=== PATIENT | female | born 1945 | race Caucasian/White ===

== ENCOUNTER 2020-07-16 16:04 | Outpatient (CLI) | payer MEDICARE | END 2020-07-16 16:05 | disposition home or self-care (01) | LOC: CSHWCC 16:04 | PROVIDERS: ATTEND Nurse Practitioner Family | DX: L97.422 Non-pressure chronic ulcer of left heel and midfoot with fat layer exposed (principal); S81.801A Unspecified open wound, right lower leg, initial encounter; I10 Essential (primary) hypertension; I70.25 Atherosclerosis of native arteries of other extremities with ulceration; J44.9 Chronic obstructive pulmonary disease, unspecified; J45.909 Unspecified asthma, uncomplicated; L97.521 Non-pressure chronic ulcer of other part of left foot limited to breakdown of skin; L97.522 Non-pressure chronic ulcer of other part of left foot with fat layer exposed; W22.8XXA Striking against or struck by other objects, initial encounter | CPT/HCPCS: 11042; 99212; G0463 ==

== ENCOUNTER 2020-07-26 11:24 | Outpatient (CLI) | payer MEDICARE | END 2020-07-26 11:25 | disposition home or self-care (01) | LOC: CSHWCC 11:24 | PROVIDERS: ATTEND Nurse Practitioner Family | DX: L97.422 Non-pressure chronic ulcer of left heel and midfoot with fat layer exposed (principal); L97.521 Non-pressure chronic ulcer of other part of left foot limited to breakdown of skin; L97.522 Non-pressure chronic ulcer of other part of left foot with fat layer exposed; S81.801D Unspecified open wound, right lower leg, subsequent encounter; I70.25 Atherosclerosis of native arteries of other extremities with ulceration; J44.9 Chronic obstructive pulmonary disease, unspecified; I10 Essential (primary) hypertension; W22.8XXD Striking against or struck by other objects, subsequent encounter ==

== ENCOUNTER 2020-10-21 09:10 | Outpatient (CLI) | payer MEDICARE | END 2020-10-21 09:11 | disposition home or self-care (01) | LOC: CSHWCC 09:10 | PROVIDERS: ATTEND Nurse Practitioner Family | DX: S81.801D Unspecified open wound, right lower leg, subsequent encounter (principal); I10 Essential (primary) hypertension; I70.25 Atherosclerosis of native arteries of other extremities with ulceration; J44.9 Chronic obstructive pulmonary disease, unspecified; W22.8XXS Striking against or struck by other objects, sequela | CPT/HCPCS: 11042; 99212; G0463 ==

== ENCOUNTER 2020-11-12 10:36 | Outpatient (CLI) | payer MEDICARE | END 2020-11-12 10:37 | disposition home or self-care (01) | LOC: CSHWCC 10:36 | PROVIDERS: ATTEND Nurse Practitioner Family | DX: S81.801D Unspecified open wound, right lower leg, subsequent encounter (principal); I70.25 Atherosclerosis of native arteries of other extremities with ulceration; J44.9 Chronic obstructive pulmonary disease, unspecified; I10 Essential (primary) hypertension; W22.8XXD Striking against or struck by other objects, subsequent encounter | CPT/HCPCS: 99212; G0463 ==

== ENCOUNTER 2021-10-28 14:07 | Outpatient (CLI) | payer MEDICARE ==
[2021-10-28 15:35] LABS: Hemoglobin 12.5 g/dL (12.0-15.5); Mean Corpuscular HGB CONC 33.7 g/dL (32.0-36.0); Mean Corpuscular Hemoglobin 31.6 pg (27.0-33.0); Mean Corpuscular Volume 93.9 fl (81.6-98.3); Platelet Count 258 10x3/uL (150-450); RBC Distribution Width 13.4 % (11.5-14.5); Red Blood Cell (RBC) Count 3.95 10x6/uL (3.90-5.03); White Blood Cell (WBC) Count 12.9 10x3/uL (3.5-10.5)
[2021-10-28 16:00] LABS: Anion Gap 15 mmol/L (10-20); BUN (Urea Nitrogen) 22 mg/dL (9.8-20.1); Calc. Creatinine Clearance 0 mL/min (70-130); Calcium 9.2 mg/dL (7.8-10.44); Carbon Dioxide 28 mmol/L (23-31); Chloride 104 mmol/L (98-107); Estimated GFR 45; Glucose 166 mg/dL (83-110); Potassium 4.6 mmol/L (3.5-5.1); Sodium 142 mmol/L (136-145)
== END 2021-10-28 14:08 | disposition home or self-care (01) ==
LOC: CSHLAB 14:07
PROVIDERS: ATTEND Otolaryngology Plastic Surgery within the Head & Neck
DX: Z01.812 Encounter for preprocedural laboratory examination (principal); Z20.822 Contact with and (suspected) exposure to COVID-19
CPT/HCPCS: 80048; 85027; 87811

== ENCOUNTER 2021-10-31 05:47 | Day surgery (SDC) | payer MEDICARE ==
[2021-10-29 11:28] VITALS: BMI 25.8
[2021-10-31] MEDS ORDERED: Lidocaine 4% Topical Sol 50 ML BOT ONE (06:38)
[2021-10-31] MEDS ORDERED: Midazolam HCl 2 mg/2 ml Vial ONE (06:47)
[2021-10-31] MEDS ORDERED: PROPOFOL 20 ML ONE (06:47)
[2021-10-31] MEDS ORDERED: Rocuronium Bromide 10 MG/ML (10ML VIAL) ONE (06:47)
[2021-10-31] MEDS ORDERED: Fentanyl 250 MCG/5 ML VIAL ONE (06:47)
[2021-10-31] MEDS ORDERED: Ondansetron PF 4 MG/2 ML Vial ONE (06:47)
[2021-10-31] MEDS ORDERED: Dexamethasone 4 mg/ml Vial ONE (06:47)
[2021-10-31] MEDS ORDERED: Lidocaine 1% PF 5 ML VIAL ONE (06:47)
[2021-10-31] MEDS ORDERED: Mupirocin 2% Ointment 22 GM Tube ONE (06:56)
[2021-10-31] MEDS ORDERED: Methylene Blue 50 MG/10 ML AMPUL ONE (06:56)
[2021-10-31] MEDS ORDERED: EPINEPHrine 1 MG/ML AMP ONE (06:56)
[2021-10-31] MEDS ORDERED: CEFAZOLIN 1 GM VIAL ONE (06:57)
[2021-10-31] MEDS ORDERED: ePHEDrine Sulfate 50 MG/10 ML VIAL ONE (07:45)
[2021-10-31] MEDS ORDERED: Phenylephrine 10 MG/ML VIAL ONE (07:48)
[2021-10-31] MEDS ORDERED: Lidocaine 1% w/Epinephrine 1:100K 20 ML VIAL ONE (07:48)
[2021-10-31] MEDS ORDERED: Phenylephrine 40 MG/NS 250 ML 250 ML ONE (07:51)
== END 2021-10-31 11:30 | disposition home or self-care (01) ==
LOC: CSHSDC 05:47
PROVIDERS: ATTEND Otolaryngology Plastic Surgery within the Head & Neck
PROC: F14Z09Z Cochlear Implant Assessment using Cochlear Implant Equipment (ICD-10-PCS; principal; 2021-10-31)
DX: H90.3 Sensorineural hearing loss, bilateral (principal); Z88.5 Allergy status to narcotic agent
CPT/HCPCS: 69930; 70260; L8614 ×2; Q9968; J0171; J0690; J1100; J2250; J2370; J2405; J2704; J3010